=== PATIENT | female | born 1970 | race Caucasian/White ===

== ENCOUNTER → 2016-05-11 | Outpatient (CLI) | payer BC | LOC: MRI 09:31 | DX: G43.719 Chronic migraine without aura, intractable, without status migrainosus (principal); M50.30 Other cervical disc degeneration, unspecified cervical region; M48.02 Spinal stenosis, cervical region; M25.78 Osteophyte, vertebrae; M50.221 Other cervical disc displacement at C4-C5 level | CPT/HCPCS: 70551; 72141 ==